=== PATIENT | male | born 1965 | race Caucasian/White ===

== ENCOUNTER 2017-04-15 16:40 | Emergency (ER) | payer BC ==
[2017-04-15 17:19] LABS: #Eosinphils 0.3 thou/uL (0.0-0.7); #Lymphocytes 2.8 thou/uL (1.20-3.40); #Monocytes 0.5 thou/uL (0.11-0.59); #Neutrophils 4.5 thou/uL (1.40-6.50); %Basophils 0.5 % (0.0-1.0); %Eosinophils 4.2 % (0.0-10.0); %Lymphocytes 34.2 % (21.0-51.0); %Monocytes 6.5 % (0.0-10.0); %Neutrophils 54.6 % (42.0-75.0); Mean Corpuscular HGB CONC 34.8 g/dL (32.0-36.0); Mean Corpuscular Hemoglobin 30.7 pg (27.0-31.0); Mean Corpuscular Volume 88.1 fl (80.0-94.0); Mean Platelet Volume 6.8 fL (7.4-10.4); Platelet Count 255 thou/uL (130-400); Red Blood Cell (RBC) Count 5.23 mill/uL (4.70-6.10); White Blood Cell (WBC) Count 8.2 thou/uL (4.8-10.8)
[2017-04-15 17:39] LABS: ALT (SGPT) 82 U/L (8-55); AST (SGOT) 47 U/L (5-34); Albumin 4.3 g/dL (3.5-5.0); Alkaline Phosphatase 66 U/L (40-150); Anion Gap 16 mmol/L (10-20); BUN (Urea Nitrogen) 11 mg/dL (8.9-20.6); Bilirubin, Total 0.5 mg/dL (0.2-1.2); CK (CPK) 1233 U/L (30-200); Calc. Creatinine Clearance 0 mL/min (70-130); Calcium 9.7 mg/dL (7.8-10.44); Carbon Dioxide 22 mmol/L (22-29); Chloride 104 mmol/L (98-107); Estimated GFR-MDRD Greater than 90; Globulin 3.1 g/dL (2.4-3.5); Glucose 193 mg/dL (70-105); Potassium 3.8 mmol/L (3.5-5.1); Protein, Total 7.4 g/dL (6.0-8.3); Sodium 138 mmol/L (136-145)
[2017-04-15 18:24] LABS: Bilirubin Negative (Negative); Blood, Urine Negative (Negative); Clarity CLEAR (Clear); Glucose, Urine (Dipstick) Negative (Negative); Leukocyte Negative (Negative); Nitrite Negative (Negative); Protein, Urine (Dipstick) Negative (Neg-Trace); Specific Gravity, Urine 1.015 (1.002-1.036); Urobilinogen 0.2 mg/dL (0.2-1.0); pH, Urine 5.5 (5.0-9.0)
== END 2017-04-15 21:19 | disposition home or self-care (01) ==
LOC: ERS 16:40
DX: M62.82 Rhabdomyolysis (principal); I10 Essential (primary) hypertension; K21.9 Gastro-esophageal reflux disease without esophagitis; E03.9 Hypothyroidism, unspecified
CPT/HCPCS: 36415; 80053; 81003; 82550; 85025; 96360

== ENCOUNTER 2017-04-18 19:31 | Emergency (ER) | payer BC | END 2017-04-19 01:24 | disposition home or self-care (01) | LOC: ERS 19:31 | DX: Z02.89 Encounter for other administrative examinations (principal); I10 Essential (primary) hypertension; K21.9 Gastro-esophageal reflux disease without esophagitis; E03.9 Hypothyroidism, unspecified | CPT/HCPCS: 99283 ==

== ENCOUNTER 2017-07-04 02:33 | Emergency (ER) | payer BC ==
[2017-07-04 03:58] LABS: Bilirubin Negative (Negative); Blood, Urine Negative (Negative); Clarity CLEAR (Clear); Glucose, Urine (Dipstick) Negative (Negative); Leukocyte Negative (Negative); Nitrite Negative (Negative); Protein, Urine (Dipstick) Negative (Neg-Trace); Specific Gravity, Urine 1.009 (1.002-1.036); Urobilinogen 0.2 mg/dL (0.2-1.0); pH, Urine 5.5 (5.0-9.0)
[2017-07-04] MEDS ORDERED: Ketorolac Tromethamine 60 MG/2 ML VIAL ONE (04:00)
== END 2017-07-04 04:55 | disposition home or self-care (01) ==
LOC: ERS 02:33
DX: M54.41 Lumbago with sciatica, right side (principal); I10 Essential (primary) hypertension; K21.9 Gastro-esophageal reflux disease without esophagitis; E03.9 Hypothyroidism, unspecified; Z79.899 Other long term (current) drug therapy
CPT/HCPCS: 81003; 96372; J1885

== ENCOUNTER 2018-04-18 14:12 | Emergency (ER) | payer BC, OTHER, SELFPAY ==
[2018-04-18 14:43] LABS: #Basophils 0.1 thou/uL (0.0-0.2); #Eosinphils 0.2 thou/uL (0.0-0.7); #Lymphocytes 2.2 thou/uL (1.20-3.40); #Monocytes 0.5 thou/uL (0.11-0.59); #Neutrophils 2.1 thou/uL (1.40-6.50); %Basophils 1.5 % (0.0-1.0); %Eosinophils 4.8 % (0.0-10.0); %Lymphocytes 42.2 % (21.0-51.0); %Monocytes 9.5 % (0.0-10.0); %Neutrophils 41.9 % (42.0-75.0); Hemoglobin 16.2 g/dL (14.0-18.0); Mean Corpuscular HGB CONC 34.8 g/dL (32.0-36.0); Mean Corpuscular Hemoglobin 30.3 pg (27.0-31.0); Mean Corpuscular Volume 87.1 fL (78.0-98.0); Mean Platelet Volume 7.1 fL (7.4-10.4); Platelet Count 240 thou/uL (130-400); Red Blood Cell (RBC) Count 5.36 mill/uL (4.70-6.10); White Blood Cell (WBC) Count 5.1 thou/uL (4.8-10.8)
[2018-04-18 15:04] LABS: ALT (SGPT) 63 U/L (8-55); AST (SGOT) 41 U/L (5-34); Albumin 4.3 g/dL (3.5-5.0); Alkaline Phosphatase 63 U/L (40-150); Anion Gap 14 mmol/L (10-20); BUN (Urea Nitrogen) 14 mg/dL (8.9-20.6); Bilirubin, Total 0.7 mg/dL (0.2-1.2); Calc. Creatinine Clearance 0 mL/min (70-130); Calcium 9.5 mg/dL (7.8-10.44); Carbon Dioxide 20 mmol/L (22-29); Chloride 108 mmol/L (98-107); Estimated GFR-MDRD Greater than 90; Globulin 2.7 g/dL (2.4-3.5); Glucose 115 mg/dL (70-105); Potassium 3.8 mmol/L (3.5-5.1); Sodium 138 mmol/L (136-145)
[2018-04-18 15:04] LABS: Acetaminophen Less than 6.0 mcg/mL (10.0-30.0); Alcohol Less than 10 mg/dL (Less than 10); Salicylate Less than 8.0 mg/dL (15.0-30.0)
[2018-04-18 16:36] LABS: Amphetamine Not Detected (NotDetected); Barbiturates Screen Not Detected (NotDetected); Benzodiazepine Screen Not Detected (NotDetected); Cocaine Metabolite Screen Not Detected (NotDetected); Medtox Control Line Valid? VALID (VALID); Medtox Reader # READER 4; Methadone Not Detected (NotDetected); Methamphetamine Not Detected (NotDetected); Opiate Screen Not Detected (NotDetected); Oxycodone Screen Not Detected (NotDetected); Phencyclidine (PCP) Not Detected (NotDetected); THC/Cannabinoid Screen Not Detected (NotDetected); Tricyclic Screen Not Detected (NotDetected)
--- NOTE | 2018-04-18 17:25 | CT ---
CT BRAIN WITHOUT CONTRAST: 04/18/18 HISTORY: Dizziness. Vertigo, syncope. COMPARISON: CT brain 09/13/13. FINDINGS: chronic forehead scalp calcification is present within the superficial fat. This is unchanged. No acu te infarct or hemorrhage. No midline shift or mass effect. Ventricular size and extra-axial CSF space s are normal. Calvarium is intact. The paranasal sinuses and mastoids are clear. IMPRESSION: No acute intracranial abnormality. POS: [facility]
== END 2018-04-18 17:44 | disposition home or self-care (01) ==
LOC: ERS 14:12
DX: R42 Dizziness and giddiness (principal); I10 Essential (primary) hypertension; K21.9 Gastro-esophageal reflux disease without esophagitis; E03.9 Hypothyroidism, unspecified; Z79.899 Other long term (current) drug therapy
CPT/HCPCS: 36415; 70450; 80053; 80306; 80307; 84484; 85025; 93005; 96360; 96361

== ENCOUNTER 2018-05-13 08:35 | Emergency (ER) | payer OTHER, SELFPAY ==
[2018-05-13] MEDS ORDERED: Ibuprofen 200 MG TAB ONE (08:56)
== END 2018-05-13 09:24 | disposition home or self-care (01) ==
LOC: SCSER 08:35
DX: B34.9 Viral infection, unspecified (principal); M79.604 Pain in right leg; G89.29 Other chronic pain; I10 Essential (primary) hypertension
CPT/HCPCS: 87804

== ENCOUNTER 2018-05-14 13:29 | Emergency (ER) | payer OTHER | END 2018-05-14 15:18 | disposition home or self-care (01) | LOC: ERS 13:29 | DX: B34.9 Viral infection, unspecified (principal); I10 Essential (primary) hypertension; K21.9 Gastro-esophageal reflux disease without esophagitis; E03.9 Hypothyroidism, unspecified | CPT/HCPCS: 99283 ==

== ENCOUNTER 2018-05-15 16:33 | Emergency (ER) | payer OTHER ==
[2018-05-15] MEDS ORDERED: diphenhydrAMINE 25 MG CAP ONE (17:33)
== END 2018-05-15 18:02 | disposition home or self-care (01) ==
LOC: ERS 16:33
DX: T78.40XA Allergy, unspecified, initial encounter (principal); K21.9 Gastro-esophageal reflux disease without esophagitis; E03.9 Hypothyroidism, unspecified
CPT/HCPCS: 99282; Q0163

== ENCOUNTER 2018-05-17 22:40 | Emergency (ER) | payer OTHER ==
[2018-05-17 23:47] LABS: Mean Corpuscular HGB CONC 34.4 g/dL (32.0-36.0); Mean Corpuscular Hemoglobin 29.4 pg (27.0-31.0); Mean Corpuscular Volume 85.7 fL (78.0-98.0); Mean Platelet Volume 8.6 fL (7.4-10.4); Platelet Count 136 thou/uL (130-400); RBC Distribution Width 12.5 % (11.5-14.5); Red Blood Cell (RBC) Count 5.11 mill/uL (4.70-6.10)
[2018-05-17 23:56] LABS: ALT (SGPT) 76 U/L (8-55); AST (SGOT) 35 U/L (5-34); Albumin 3.4 g/dL (3.5-5.0); Alkaline Phosphatase 76 U/L (40-150); Anion Gap 14 mmol/L (10-20); BUN (Urea Nitrogen) 18 mg/dL (8.4-25.7); Calc. Creatinine Clearance 0 mL/min (70-130); Calcium 8.8 mg/dL (7.8-10.44); Carbon Dioxide 22 mmol/L (22-29); Chloride 104 mmol/L (98-107); Estimated GFR-MDRD 86; Globulin 2.8 g/dL (2.4-3.5); Glucose 203 mg/dL (70-105); Potassium 3.8 mmol/L (3.5-5.1); Protein, Total 6.2 g/dL (6.0-8.3); Sodium 136 mmol/L (136-145)
[2018-05-18 00:18] LABS: Band 19 % (5-11); Lymphocytes 1 % (21-51); MDiff Complete? YES; Monocytes 2 % (0-10); Neutrophil 76 % (42-75); Platelet Morphology Comment Appears Adequate; RBC Morphology Normal; Reactive Lymphocytes 2 % (0-10); White Blood Cell (WBC) Count 15.4 thou/uL (4.8-10.8)
[2018-05-18 01:07] LABS: Bilirubin Negative (Negative); Blood, Urine Negative (Negative); Clarity CLEAR (Clear); Glucose, Urine (Dipstick) Negative (Negative); Leukocyte Negative (Negative); Nitrite Negative (Negative); Protein, Urine (Dipstick) Negative (Neg-Trace); Specific Gravity, Urine 1.014 (1.002-1.036)
[2018-05-18 02:45] LABS: INR-International Normal Ratio 1.2; PTT 29.6 SEC (22.9-36.1); Prothrombin Time 14.9 SEC (12.0-14.7)
[2018-05-20 11:27] LABS: Lyme IgG/IgM AB <0.91 ISR (0.00-0.90)
[2018-05-21 01:10] LABS: RMSF IgG (EIA) Negative (Negative); RMSF IgM 0.18 index (0.00-0.89)
== END 2018-05-18 03:14 | disposition home or self-care (01) ==
LOC: ERS 22:40
DX: R21 Rash and other nonspecific skin eruption (principal); R50.9 Fever, unspecified; R94.5 Abnormal results of liver function studies; I10 Essential (primary) hypertension; K21.9 Gastro-esophageal reflux disease without esophagitis; E03.9 Hypothyroidism, unspecified; Z79.899 Other long term (current) drug therapy; Z79.82 Long term (current) use of aspirin
CPT/HCPCS: 36415; 80053; 81003; 82550; 85025; 85610; 85730; 86618; 86757; 87804; 93005

== ENCOUNTER 2018-06-11 01:51 | Emergency (ER) | payer OTHER ==
[2018-06-11] MEDS ORDERED: Mag-Al 1200 mg/1200 mg/30 ML UDCUP ONE (02:27)
[2018-06-11] MEDS ORDERED: Lidocaine Viscous Sol 2% 15 ml UD Cup ONE (02:27)
== END 2018-06-11 04:50 | disposition home or self-care (01) ==
LOC: ERS 01:51
DX: R10.13 Epigastric pain (principal); E03.9 Hypothyroidism, unspecified; I10 Essential (primary) hypertension; K21.9 Gastro-esophageal reflux disease without esophagitis; Z79.82 Long term (current) use of aspirin; Z79.899 Other long term (current) drug therapy
CPT/HCPCS: 93005

== ENCOUNTER 2020-04-12 21:12 | Observation (INO) | payer OTHER ==
[2020-04-13 02:59] VITALS: BMI 32.8
--- NOTE | 2020-04-13 03:20 | PDOC.HHP ---
Hospitalist HPI Chest pain, New RBBB History of Present Illness: This is a 54-year-old male patient with a history of chronic low back pain, bilateral myopathy with weakness, hypertension and borderline diabetes mellitus who was transferred from [facility] ED on account of intermittent chest pain and new right bundle branch block as well as feeling of general unwellness. His Covid test was negative Patient notes that for the past 2 weeks his been feeling generally unwell with intermittent chest pain. Pain is usually mild 2-3 intensity initially localized in the left side with no associated nausea or diaphoresis. Earlier in the day today felt the pain again and presented himself to the ED at [facility]. The pain however resolved by itself however due to his risk factors and a new right bundle branch block noted by the ED physician concerns that he may be a cardiac process and has transferred him here for further management. Patient notes that he does not smoke and drinks alcohol occasionally. He denies any metham phetamine or cocaine use. He notes his father has a history of coronary artery disease and had a stent last year however this was about the age of 60. He also has a family of 2 diabetes mellitus. At the time of presentation he notes still having persistent mild 2/3 chest discomfort however no significant distress. His blood pressures were 135/84, temperature 98.7, pulse 72 and respiratory 20. Saturation was 98% on room air. His labs from [facility] were WBC 6.5, hemoglobin 16.2 and platelets 218 D- dimer was within normal limits. Creatinine was 0.7, glucose 131, sodium 139 and CK was 72. Potassium was 41. Troponin was within normal limits. Chest x-ray showed no acute cardiopulmonary events. He was given aspirin, 20 mg Lovenox, liter of normal saline prior to transfer. Allergies/Adverse Reactions: Allergy/AdvReac Type Severity Reaction Status Date / Time hydrocodone Allergy Severe Short of Verified 04/13/20 03:02 Breath morphine Allergy Intermediate Itching Verified 04/13/20 03:02 atorvastatin [From Lipitor] Allergy Verified 04/13/20 03:02 atorvastatin calcium AdvReac Severe Verified 04/13/20 03:02 [From Lipitor] Home Medications: Medication Instructions Recorded Confirmed Type Aspirin [Adult Low Dose Aspirin EC] 81 mg PO DAILY 09/17/15 04/13/20 History Atenolol [Tenormin] 25 mg PO DAILY 09/17/15 04/13/20 History Levothyroxine Sodium 150 mcg PO DAILY 09/17/15 04/13/20 History Ranitidine HCl 300 mg PO HS 09/17/15 04/13/20 History Acetaminophen [Tylenol Extra 500 mg PO PRN PRN 04/13/20 04/13/20 History Strength] traMADol HCl [Tramadol HCl] 50 mg PO PRN PRN 04/13/20 04/13/20 History Past History: PMHx: Bilateral lower limb myopathy, chronic low back pain, hypertension PSHx: Lumbar surgery FHx: Coronary disease, diabetes mellitus Social: Lives alone, does not smoke occasional alcohol use. No drug use. Hospitalist HPI ROS Constitutional: reports: weakness, malaise. denies: fever, chills, sweats Respiratory: denies: cough, shortness of breath, hemoptysis, SOB with excertion Cardiovascular: denies: chest pain, palpitations, orthopnea, paroxysmal noc. dyspnea Gastrointestinal: denies: nausea, vomiting, abdominal pain, diarrhea Genitourinary: denies: dysuria, frequency, incontinence, hematuria Musculoskeletal: reports: back pain. denies: neck pain, shoulder pain Neurological: reports: weakness (As foot drop bilaterally from my part). denies: numbness (Lower limb), incoordination All other systems reviewed; all pertinent +/- noted in HPI/Subj Hospitalist Exam Vitals: Vital Signs (12 hours) Temp Pulse Resp BP Pulse Ox 04/12/20 23:45 98.7 F 72 20 135/84 98 Weight Weight 215 lb 9.6 oz General Appearance: awake alert General - other findings: In bed in no acute distress Eye: PERRL, anicteric sclera ENT: normocephalic atraumatic Heart: RRR, no murmur, no gallops, no rubs Respiratory: CTAB, no wheezes, no rales, no ronchi Extremities: no cyanosis, no clubbing, no edema Neurological: cranial nerve grossly intact Neurological - other findings: Bilateral lower limb weakness Psychiatric: normal affect, normal behavior, A&O x 3 Hospitalist Results Result Diagrams: 04/13/20 04:32 04/13/20 04:32 Hospitalist H&P A/P Plan: This is a 54-year-old male patient with a history of hypertension, borderline diabetes and bilateral lower limb weakness was transferred from [facility] on account of intermittent chest pain and new right bundle branch block. Chest pain Generally atypical however given his history hypertension, DM and the new RBBB We will manage on aspirin and. Nitroglycerin Telemetry monitoring Cardiology consult in a.m. Hypertension Blood pressure stable Resume home blood pressure medications once verified. Bilateral lower limb weakness This is chronic Monitor PT if indicated. History of hypothyroidism On levothyroxine We will continue Check TSH. Rhabdomyolysis This is chronic CK around 600 We will monitor VT prophylaxis Lovenox CODE STATUSfull code
[2020-04-13 04:55] LABS: #Eosinphils 0.3 thou/uL (0.0-0.7); #Lymphocytes 3.2 thou/uL (1.20-3.40); #Monocytes 0.6 thou/uL (0.11-0.59); #Neutrophils 2.9 thou/uL (1.40-6.50); %Basophils 0.7 % (0.0-1.0); %Eosinophils 3.9 % (0.0-10.0); %Lymphocytes 45.5 % (21.0-51.0); %Monocytes 8.2 % (0.0-10.0); %Neutrophils 41.7 % (42.0-75.0); Hemoglobin 14.7 g/dL (14.0-18.0); Mean Corpuscular HGB CONC 34.6 g/dL (32.0-36.0); Mean Corpuscular Hemoglobin 29.6 pg (27.0-31.0); Mean Corpuscular Volume 85.6 fL (78.0-98.0); Mean Platelet Volume 7.2 fL (7.4-10.4); Platelet Count 233 thou/uL (130-400); RBC Distribution Width 12.1 % (11.5-14.5); Red Blood Cell (RBC) Count 4.97 mill/uL (4.70-6.10)
[2020-04-13 05:35] LABS: Anion Gap 13 mmol/L (10-20); BUN (Urea Nitrogen) 13 mg/dL (8.4-25.7); Calc. Creatinine Clearance 142 mL/min (70-130); Carbon Dioxide 25 mmol/L (22-29); Chloride 106 mmol/L (98-107); Glucose 163 mg/dL (70-105); Potassium 3.6 mmol/L (3.5-5.1); Sodium 140 mmol/L (136-145)
[2020-04-13] MEDS ORDERED: Levothyroxine 150 MCG TAB PO SCH ×2 (06:00→14:00)
[2020-04-13] MEDS ORDERED: traMADol HCl 50 MG TAB PO PRN ×2 (06:00→10:16)
[2020-04-13] MEDS ORDERED: Acetaminophen 500 MG TAB PO PRN (06:00)
[2020-04-13] MEDS ORDERED: Aspirin 81 mg Enteric Coated Tablet PO SCH (09:00)
[2020-04-13] MEDS ORDERED: Enoxaparin Sodium 40 MG/0.4 ML SYRINGE SC SCH (09:00)
[2020-04-13] MEDS ORDERED: Aspirin Chewable 81 MG TAB PO SCH (09:00)
[2020-04-13 09:34] LABS: Troponin I Less than 0.010 ng/mL (< 0.028)
[2020-04-13 11:29] LABS: Hemoglobin A1c 6.4 % (4.0-6.0)
[2020-04-13 11:42] LABS: Cardiac Risk 7.5 (Less than 4.5); Cholesterol 232 mg/dl (< 200 Desired); HDL Cholesterol 31 mg/dL (>60 Neg Risk); Triglycerides 470 mg/dL (Less than 150)
[2020-04-13 11:48] LABS: Troponin I 0.013 ng/mL (< 0.028)
[2020-04-13 11:53] VITALS: BP 137/82; TEMP 98.3
[2020-04-13 12:03] LABS: Free T4 (Free Thyroxine) 1.36 ng/dL (0.70-1.48)
--- NOTE | 2020-04-13 14:56 | PDOC.DS.DS ---
Provider Date of Admission: 04/12/20 21:12 Date of Discharge: 04/13/20 Admitting Provider: Guillermo Hall MD Consultations: None Primary Care Physician: Tiffanie Huitron MD Course Hospital Course: Patient is a pleasant 54 years old gentleman who has significant past medical histories of chronic back pain, bilateral myopathy with chronic weakness, and foot drop, borderline diabetes, who was transferred from outside facility ER with complaint of intermittent chest discomfort and abnormal EKG with right bundle branch block. Patient complaining of generalized weakness, not feeling well. He thought that he had Covid, however his Covid test came back negative. At any rate, patient was monitored on telemetry. No evidence of arrhythmia. He is EKG demonstrated right bundle branch block. However there is no ST changes. Apparently patient had a nuclear stress test done at Dr. Christiano hitchcock's office a few months ago, reportedly was negative. His echo showed preserved EF, otherwise unremarkable. His hemoglobin A1c was 6.4. He does have elevated triglyceride at 470, total cholesterol 232. Patient is allergic to statin therapy, as well as fenofibrate. He is on fish oil at home. He had not been taking it for the last few days. Additionally, his TSH is depressed. He is currently taking 150 mcg daily. We recommend to reduce the dose to 125 mcg and follow-up with his PCP in 4 to 6 weeks to recheck his TSH level. His generalized fatigue, may be related to abnormal thyroid function or uncontrolled hypothyroidism. Additionally, he has been taking his lisinopril 2.5 mg q. 7- day, since he is taking a low dose, would recommend him to take it every day as this medication is not designed for 7-day. Patient verbalized understanding. He is to follow-up with his PCP in 1 to 2 weeks for ongoing management. At this time patient is stable to discharge home. He has ACS ruled out with negative enzymes. His D-dimer was negative Pertinent Studies: Echo showed of 60-65%. Mild MR. No evidence of mitral valve stenosis. Procedures: none Resuscitation Status: 04/13/20 03:14 Resuscitation Status Routine Resuscitation Status: FULL: Full Resuscitation Lab Results: 04/13/20 04:32 04/13/20 04:32 Abnormal Lab Results - Last 48 hrs 04/13/20 04:32: MPV 7.2 L, Neutrophils % 41.7 L, Monocytes # 0.6 H 04/13/20 04:32: TSH 3rd Generation 0.2299 L 04/13/20 11:11: Triglycerides 470 H, Cholesterol 232 H 04/13/20 11:11: Hemoglobin A1c 6.4 H Vitals: Vital Signs (12 hours) Temp Pulse Resp BP Pulse Ox 04/13/20 11:52 98.3 F 75 20 137/82 97 04/13/20 07:47 98.1 F 62 20 158/86 H 97 04/13/20 04:00 98.6 F 72 20 106/63 96 04/13/20 03:14 96 Weight Weight 215 lb 9.6 oz Physical Exam: The patient was seen and examined on the day of discharge. General Appearance: NAD Eye: PERRL ENT: normocephalic atraumatic Neck: supple Respiratory: CTAB Cardiovascular: RRR Gastrointestinal: soft Extremities: no cyanosis Skin: normal turgor Neurological: cranial nerve grossly intact PSYCH: normal affect, normal behavior, A&O x 3 Problem (1) Chest discomfort Code(s): R07.89 - OTHER CHEST PAIN Status: Acute (2) General weakness Code(s): R53.1 - WEAKNESS Status: Acute (3) GERD (gastroesophageal reflux disease) Code(s): K21.9 - GASTRO-ESOPHAGEAL REFLUX DISEASE WITHOUT ESOPHAGITIS Status: Chronic Qualifiers: Esophagitis presence: without esophagitis Qualified Code(s): K21.9 - Gastro-esophageal reflux disease without esophagitis (4) HLD (hyperlipidemia) Code(s): E78.5 - HYPERLIPIDEMIA, UNSPECIFIED Status: Chronic Qualifiers: Hyperlipidemia type: unspecified (5) Hypertension Code(s): I10 - ESSENTIAL (PRIMARY) HYPERTENSION Status: Chronic Qualifiers: Hypertension type: essential hypertension (6) Hypothyroidism Code(s): E03.9 - HYPOTHYROIDISM, UNSPECIFIED Status: Chronic Qualifiers: Hypothyroidism type: unspecified Plan Home Medications: Medication Instructions Recorded Confirmed Type Aspirin [Adult Low Dose Aspirin EC] 81 mg PO DAILY 09/17/15 04/13/20 History Levothyroxine Sodium 150 mcg PO DAILY 09/17/15 04/13/20 History Ranitidine HCl 300 mg PO HS 09/17/15 04/13/20 History Acetaminophen [Tylenol Extra 500 mg PO PRN PRN 04/13/20 04/13/20 History Strength] Lisinopril [Zestril] 2.5 mg PO DAILY #0 04/13/20 04/13/20 Rx traMADol HCl [Tramadol HCl] 50 mg PO PRN PRN 04/13/20 04/13/20 History Allergies: hydrocodone Allergy (Severe, Verified 04/13/20 03:02) Short of Breath Disorientation morphine Allergy (Intermediate, Verified 04/13/20 03:02) Itching Tolerated w/ benadryl atorvastatin [From Lipitor] Allergy (Verified 04/13/20 03:02) atorvastatin calcium [From Lipitor] Adverse Reaction (Severe, Verified 04/13/20 03:02) Rhabdomyolysis Discharge Instructions:: Follow up with PCP in 1-2 wks. Activity:: Activity as Tolerated Nourishment:: Low Sodium Diet Referrals: Tiffanie Huitron MD [Primary Care Provider] - 7 Days (call and schedule appt to see Dr Huitron in 1 week. ) Disposition: HOME Quality CORE MEASURES:: N/A
[2020-04-13] MEDS ORDERED: FLU VACC QS2020-21(6MOS UP)/PF 60 MCG/0.5 ML SYRINGE IM ONE (21:00)
== END 2020-04-13 16:16 | disposition home or self-care (01) ==
LOC: 2NO 21:12
PROVIDERS: ADMIT Student in an Organized Health Care Education/Training Program; ATTEND Family Medicine
DX: R07.89 Other chest pain (principal); I45.10 Unspecified right bundle-branch block; G89.29 Other chronic pain; M62.82 Rhabdomyolysis; I10 Essential (primary) hypertension; R73.03 Prediabetes; I34.0 Nonrheumatic mitral (valve) insufficiency; K21.9 Gastro-esophageal reflux disease without esophagitis; E03.9 Hypothyroidism, unspecified; Z79.82 Long term (current) use of aspirin; Z79.899 Other long term (current) drug therapy; Z82.49 Family history of ischemic heart disease and other diseases of the circulatory system; Z88.5 Allergy status to narcotic agent; Z88.8 Allergy status to other drugs, medicaments and biological substances; Z20.822 Contact with and (suspected) exposure to COVID-19
CPT/HCPCS: 36415; 80048; 80061; 83036; 84439; 84443; 84481; 84484; 85025; 93005; 93010; 93306; 94760; G0378; J1650

== ENCOUNTER 2020-05-10 04:46 | Emergency (ER) | payer OTHER ==
[2020-05-10 05:56] LABS: #Basophils 0.1 thou/uL (0.0-0.2); #Eosinphils 0.3 thou/uL (0.0-0.7); #Lymphocytes 3.8 thou/uL (1.20-3.40); #Monocytes 0.7 thou/uL (0.11-0.59); #Neutrophils 3.8 thou/uL (1.40-6.50); %Basophils 0.9 % (0.0-1.0); %Eosinophils 3.9 % (0.0-10.0); %Lymphocytes 43.5 % (21.0-51.0); %Monocytes 8.2 % (0.0-10.0); %Neutrophils 43.4 % (42.0-75.0); Hemoglobin 16.4 g/dL (14.0-18.0); Mean Corpuscular HGB CONC 34.3 g/dL (32.0-36.0); Mean Corpuscular Hemoglobin 30.1 pg (27.0-31.0); Mean Corpuscular Volume 87.8 fL (78.0-98.0); Mean Platelet Volume 6.9 fL (7.4-10.4); Platelet Count 259 thou/uL (130-400); RBC Distribution Width 12.1 % (11.5-14.5); Red Blood Cell (RBC) Count 5.44 mill/uL (4.70-6.10); White Blood Cell (WBC) Count 8.7 thou/uL (4.8-10.8)
[2020-05-10 06:17] LABS: ALT (SGPT) 79 U/L (8-55); AST (SGOT) 47 U/L (5-34); Albumin 4.6 g/dL (3.5-5.0); Alkaline Phosphatase 68 U/L (40-110); Anion Gap 15 mmol/L (10-20); BUN (Urea Nitrogen) 17 mg/dL (8.4-25.7); Bilirubin, Total 0.6 mg/dL (0.2-1.2); Calc. Creatinine Clearance 0 mL/min (70-130); Calcium 9.8 mg/dL (7.8-10.44); Carbon Dioxide 25 mmol/L (22-29); Chloride 102 mmol/L (98-107); Globulin 2.7 g/dL (2.4-3.5); Glucose 132 mg/dL (70-105); Protein, Total 7.3 g/dL (6.0-8.3); Sodium 138 mmol/L (136-145)
--- NOTE | 2020-05-10 07:58 | RAD ---
Chest AP view INDICATION: Chest pain COMPARISON: None FINDINGS: Lungs: The lungs are clear Cardiac silhouette: The cardiomediastinal silhouette appears within normal limits. Pulmonary vasculature: Normal Pleural spaces: No pleural effusion or pneumothorax is demonstrated. Upper abdomen: No abnormality seen. Osseous structures: No acute osseous abnormality. Additional findings: None. IMPRESSION: No acute cardiopulmonary abnormality.
--- NOTE | 2020-05-13 13:43 | EKG ---
Test Reason : EMERGENCY Blood Pressure : / mmHG Vent. Rate : 065 BPM Atrial Rate : 065 BPM P-R Int : 188 ms QRS Dur : 150 ms QT Int : 404 ms P-R-T Axes : 042 -01 024 degrees QTc Int : 420 ms Normal sinus rhythm Right bundle branch block Abnormal ECG Confirmed by MICKIE MOHR ([id number]), makeup editor JOSE GORE ([id number]) on 05/13/2020 1:43:36 PM Referred By: Confirmed By:MICKIE MOHR
== END 2020-05-10 06:45 | disposition home or self-care (01) ==
LOC: ERS 04:46
DX: I10 Essential (primary) hypertension (principal); R07.9 Chest pain, unspecified; E78.5 Hyperlipidemia, unspecified; K21.9 Gastro-esophageal reflux disease without esophagitis; E03.9 Hypothyroidism, unspecified; Z79.899 Other long term (current) drug therapy
CPT/HCPCS: 36415; 71045; 80053; 84484; 85025; 93005